=== PATIENT | female | born 1945 | race Caucasian/White ===

== ENCOUNTER 2016-09-26 07:26 | Emergency (ER) | payer OTHER ==
[~2016-09-26] VITALS: Ht 165.1 cm; Wt 94.8 kg
[~2016-09-26 07:26] MED LIST: ALLEGRA ALLERGY60 MG PO; CARAFATE 1 GM TA1 G1 PO; CELEXA 20 MG TA20 MG PO; FLEXERIL PO; IRON325 PO; LORTAB 5 MG/5001 TA1 PO; MEDROLDOSEPACK PO; NEXIUM40 MG PO; VENOFER20 MG/ML IVPB; ZPAK PO
[2016-09-26] MEDS ORDERED: SYMBICORT160 MCG/4. INH (08:03)
[2016-09-26] MEDS ORDERED: NORCO 5-325 TA1 EACH PO (10:05)
[2016-09-26] MEDS ORDERED: ZOFRAN ODT4 MG PO (10:55)
== END 2016-09-26 12:36 | disposition home or self-care (01) ==
LOC: ER 07:26
DX: S52.502A Unspecified fracture of the lower end of left radius, initial encounter for closed fracture (principal); S52.612A Displaced fracture of left ulna styloid process, initial encounter for closed fracture; M25.532 Pain in left wrist; K21.9 Gastro-esophageal reflux disease without esophagitis; Z90.49 Acquired absence of other specified parts of digestive tract; Z86.2 Personal history of diseases of the blood and blood-forming organs and certain disorders involving the immune mechanism; Z88.0 Allergy status to penicillin; Z88.2 Allergy status to sulfonamides; W01.0XXA Fall on same level from slipping, tripping and stumbling without subsequent striking against object, initial encounter; Y93.89 Activity, other specified; Y92.89 Other specified places as the place of occurrence of the external cause; Y99.8 Other external cause status